=== PATIENT | male | born 1970 | race Hispanic/Latino ===

== ENCOUNTER 2017-12-09 03:08 | Emergency (ER) | payer MEDICAID ==
[2017-12-09] MEDS ORDERED: MOTRIN PO ONE (04:38)
--- NOTE | 2017-12-09 05:28 | XRay Report ---
FINAL REPORT EXAM: XR RIBS UNI W PA CHEST 3+V RT HISTORY: right rib pain TECHNIQUE: Three views of the right ribs were obtained along with AP of the chest. FINDINGS: There is an acute nondisplaced fracture along the anterolateral aspect of the right 9th rib. There are no additional rib fractures. The lungs are clear. There is no evidence of pneumothorax or pleural effusion. The heart size is normal. IMPRESSION: Acute nondisplaced fracture along the anterior aspect of the right 9th rib. No evidence of pneumothorax or pleural effusion.
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
[2017-12-09 07:49] VITALS: BP 103/74
== END 2017-12-09 07:49 | disposition home or self-care (01) ==
LOC: ED 03:08
DX: S22.31XA Fracture of one rib, right side, initial encounter for closed fracture (principal); F17.200 Nicotine dependence, unspecified, uncomplicated; Z88.8 Allergy status to other drugs, medicaments and biological substances; Y04.2XXA Assault by strike against or bumped into by another person, initial encounter; Y93.89 Activity, other specified; Y99.8 Other external cause status; Y92.098 Other place in other non-institutional residence as the place of occurrence of the external cause
CPT/HCPCS: 99283

== ENCOUNTER 2018-05-03 02:01 | Emergency (ER) | payer MEDICAID ==
[2018-05-03] MEDS ORDERED: TYLENOL ONE (03:32)
[2018-05-03 03:33] VITALS: BP 124/80
[2018-05-03] MEDS ORDERED: TYLENOL PO ONE (03:33)
[2018-05-03] MEDS ORDERED: BOOSTRIX IM ONE (09:30)
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
== END 2018-05-03 11:08 | disposition home or self-care (01) ==
LOC: ED 02:01
DX: S01.511A Laceration without foreign body of lip, initial encounter (principal); M54.2 Cervicalgia; M54.5 Low back pain; F17.200 Nicotine dependence, unspecified, uncomplicated; Y04.8XXA Assault by other bodily force, initial encounter; Y93.89 Activity, other specified; Y92.149 Unspecified place in prison as the place of occurrence of the external cause; Y99.8 Other external cause status
CPT/HCPCS: 72125; 72131; 90471; 90715; 99283

== ENCOUNTER 2018-10-21 02:35 | Emergency (ER) | payer MEDICAID, OTHER ==
[~2018-10-21 02:35] MED LIST: ADRENALIN ONE; CALCIUM CHLORIDE IV ONE
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
== END 2018-10-21 05:43 ==
LOC: EDUNIT# → ED 02:35
DX: I46.9 Cardiac arrest, cause unspecified (principal)
CPT/HCPCS: 99285; J0171